=== PATIENT | male | born 1965 | race Caucasian/White ===

== ENCOUNTER 2017-03-22 12:11 | Emergency (ER) | payer MEDICAID ==
--- NOTE | 2017-03-22 13:53 | ED Physician Documentation ---
History of Present Illness - Stated complaint Stated Complaint: SORE THROAT - Chief complaint Chief Complaint: Heent - Additonal information Additional information: hx from pt very nice 51 y/o male hx radiation for brain cancer has right lower last and second to last dental decay seen by dentist and due to have teeth pulled but dentist wanted to get prior records before the surgery so tx is delayed now he has swelling along his mandible and fears infection Review of Systems Constitutional: denies: Fever Throat: reports: Dental pain / toothache Immunocompromised: denies: Immunocompromised PD PAST MEDICAL HISTORY - Past Medical History Neuro: Other - Past Surgical History Past Surgical History: Yes - Present Medications Home Medications: Ambulatory Orders Medication Instructions Recorded Confirmed Amoxicillin 500 mg PO Q8H #30 capsule 03/22/17 - Allergies Allergies/Adverse Reactions: Allergies Allergy/AdvReac Type Severity Reaction Status Date / Time Penicillins Allergy Unknown Verified 07/06/16 13:45 - Social History Does the pt smoke?: No Smoking Status: Never smoker Does the pt drink ETOH?: No Does the pt have substance abuse?: No - Immunizations Immunizations are current?: Yes PD ED PE NORMAL - Vitals Vital signs reviewed: Yes - General General: Alert and oriented X 3 - HEENT HEENT: PERRL, Other (right lower back two molars decayed and tender, no trismus but tender swelling just under posterior mandible, no visible abscess within oral cavity to drain) - Neck Neck: Supple, no meningeal sign - Cardiac Cardiac: RRR - Respiratory Respiratory: No respiratory distress, Clear bilaterally Results - Vitals Vitals: Vital Signs - 24 hr 03/22/17 03/22/17 12:14 13:30 Temperature 36.6 C 36.9 C Heart Rate 95 80 Respiratory 18 18 Rate Blood Pressure 175/98 H 131/88 H O2 Saturation 97 97 Oxygen O2 Source Room air PD MEDICAL DECISION MAKING - ED course ED course: EMR alert penicllin allergy I spoke with pt he had an unknown rxn as a child but has taken penicillins since then without advserse rxn so rx amox which has much fewer GI side effects than clinda Departure - Departure Disposition: 01 Home, Self Care Clinical Impression: Dental infection Condition: Good Instructions: ED Abscess Dental Prescriptions: Amoxicillin 500 mg PO Q8H #30 capsule Comments: Follow up with your dentist as scheduled Also your blood pressure was elevated today - please follow up with your PMD
[2017-03-22 14:20] VITALS: BP 141/88
== END 2017-03-22 14:18 | disposition home or self-care (01) ==
LOC: ED 12:11
DX: K04.7 Periapical abscess without sinus (principal); Z85.841 Personal history of malignant neoplasm of brain
CPT/HCPCS: 99283

== ENCOUNTER 2020-10-04 14:29 | Emergency (ER) | payer MEDICAID ==
[2020-10-04] MEDS ORDERED: BUFFERED LIDOCAINE 10 ML SYRINGE SUBQ STA (15:05)
[2020-10-04] MEDS ORDERED: BACITRACIN ZINC OINT 1 PACKET TOP STA (15:06)
--- NOTE | 2020-10-04 15:24 | ED Physician Documentation ---
History of Present Illness - Stated complaint Stated Complaint: RT FINGER LAC - Chief complaint Chief Complaint: Laceration - History of Present Illness Timing: Prior to arrival - Additonal information Additional information: 55-year-old male presents emergency department for treatment of a laceration on the dorsum of his right index finger that occurred prior to arrival. 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 He reports tetanus is up-to-date in the last year. Patient is right-hand dominant. Bleeding controlled with pressure. Review of Systems Constitutional: reports: Fever Ears: reports: Reviewed and negative Nose: reports: Reviewed and negative Throat: reports: Reviewed and negative Cardiac: reports: Reviewed and negative Respiratory: reports: Reviewed and negative GI: reports: Reviewed and negative : reports: Reviewed and negative Skin: reports: Laceration (s) Musculoskeletal: reports: Reviewed and negative PD PAST MEDICAL HISTORY - Past Medical History Past Medical History: Yes Cardiovascular: None Respiratory: None Neuro: None Endocrine/Autoimmune: None GI: None : None HEENT: None Psych: None Musculoskeletal: None Derm: None - Past Surgical History Past Surgical History: Yes Ortho: Shoulder arthroplasty - Present Medications Home Medications: Ambulatory Orders Medication Instructions Recorded Confirmed Amoxicillin 500 mg PO Q8H #30 capsule 03/22/17 - Allergies Allergies/Adverse Reactions: Allergies Allergy/AdvReac Type Severity Reaction Status Date / Time No Known Drug Allergies Allergy Verified 03/22/17 13:57 - Social History Does the pt smoke?: No Smoking Status: Never smoker Does the pt drink ETOH?: No Does the pt have substance abuse?: No - Immunizations Immunizations are current?: Yes - POLST Patient has POLST: No PD ED PE EXPANDED - Extremities Extremities: Right finger(s) (1.5 cm laceration dorsum of right index finger just above MCP joint. Normal flexion and extension of digit against resistance. No tendon visible. No deformity) Results - Vitals Vitals: Oxygen O2 Source Room air Procedures - Laceration (location) right index finger Length in cm: 1.5 Wound type: Linear Neurovascular status: Sensory intact, Motor intact, Vascular intact Tendon involvement: Tendon intact Anesthesia: Lidocaine 1% Wound Preparation: Chlorhexadine, Irrigated copiously NS Skin layer closure: Interrupted, Size #-0 - enter number (4), Sutures - enter # (3) Other: Patient tolerated well, No complications, Neurovascular intact, Dressing applied, Tetanus UTD Complexity: Simple PD MEDICAL DECISION MAKING - ED course Complexity details: reviewed results ED course: 55-year-old male presents the emergency department for evaluation of a right index finger laceration sustained just prior to arrival. Laceration on the dorsum of the finger. He has no evidence of an extensor tendon injury. Wound was thoroughly cleansed with chlorhexidine and irrigated copiously with saline. Approximated with 3 sutures. Routine wound care and emergent return precautions discussed Departure - Departure Disposition: 01 Home, Self Care Clinical Impression: Finger laceration Qualifiers: Encounter type: initial encounter Finger: index finger Damage to nail status: without damage Foreign body presence: without foreign body Laterality: right Qualified Code(s): S61.210A - Laceration without foreign body of right index finger without damage to nail, initial encounter Condition: Stable Record reviewed to determine appropriate education?: Yes Instructions: ED Laceration Hand Comments: Suture should be removed in 7 to 10 days. In 24 hours you may gently remove your dressing, wash with warm soap and water pat dry and apply any antibiotic ointment such as Neosporin or bacitracin. Your tetanus is up-to-date. About 5% of all lacerations will get infected therefore if you have fevers redness milky drainage increased pain or any concerns of infection please return to the emergency department for a second evaluation. It is important while this laceration heals that you try and keep your hands as clean and dry as you can while working
[2020-10-04 15:39] VITALS: BP 126/92
== END 2020-10-04 15:40 | disposition home or self-care (01) ==
LOC: ED 14:29
DX: S61.210A Laceration without foreign body of right index finger without damage to nail, initial encounter (principal); W26.8XXA Contact with other sharp object(s), not elsewhere classified, initial encounter; Y93.89 Activity, other specified; Y92.89 Other specified places as the place of occurrence of the external cause
CPT/HCPCS: 12001; 99281; A9270